=== PATIENT | male | born 1965 | race Caucasian/White ===

== ENCOUNTER → 2017-03-07 | Day surgery (SDC) | payer BC ==
[2017-02-23 11:37] VITALS: Ht 177.8 cm; Wt 86.4 kg
[~2017-03-07] VITALS: Ht 177.8 cm; Wt 86.4 kg
[~2017-03-07] MED LIST: ALBU18002 INH; LIDOCAINE HCL 2% 2 ML VIAL (20MG/ML) ONE; MULT-506 PO; PROPOFOL IV EMULSION 10 MG/ML 20 ML VIAL IV ONE; RABE20TA5 PO; SODIUM CHLORIDE 0.9% 500ML 500 ML IV ONE
[2017-03-07 13:23] VITALS: TEMP 37
--- NOTE | 2017-03-07 13:57 | Endo History and Physical ---
History & Physical Date of Service: Mar 07, 2017. Chief Complaint: House's esophagus Referring Physician: Ga Byrne History of Present Illness 52 yo CM who presents for EGD secondary to House's Esophagus. Past Surgical History Hx Cardiac Surgery: No Hx Internal Defibrillator: No Hx Pacemaker: No Hx Abdominal Surgery: No Hx of Implantable Prosthesis: No Hx Post-Op Nausea and Vomiting: No Hx Cancer Surgery: No Hx Thoracic Surgery: No Hx Orthopedic: Yes (R KNEE SCOPE, L KNEE SCOPE) Hx Urinary Tract Surgery: No Family History Colon CA, Esophogeal CA Social History Smoking Status: Never Smoker Hx Substance Use: No Hx Alcohol Use: Yes (RARELY) Allergies Coded Allergies: No Known Allergies (Unverified , 03/07/17) Current Medications Reported Home Medications Medications Dose Route/Sig Max Daily Dose Days Date Category Proair Respiclick (Albuterol Sulfate) 108 Mcg/Act Aer 1-2 Puffs INH PRN 02/23/17 Reported Multivitamin (Multivitamins) Tab 1 Tab PO QAM 02/23/17 Reported Aciphex (Rabeprazole Sodium) 20 Mg Tab 1 Tab PO QAM 90 02/23/17 Reported Vital Signs Weight (Kilograms): 86.36 Height (Feet): 5 Height (Inches): 10 Date Time Temp Pulse Resp B/P (MAP) Pulse Ox O2 Delivery O2 Flow Rate FiO2 03/07/17 13:23 37.0 61 18 132/85 (101) 97 Room Air Physical Exam General Appearance: WD/WN, no apparent distress Respiratory/Chest: Auscultation: breath sounds normal Cardiovascular: Heart Auscultation: RRR Abdomen: Bowel Sounds: normal Inspection & Palpation: soft, non-distended, no tenderness, guarding & rebound Assessment and Plan Assessment: 52 yo CM who presents for EGD secondary to House's Esophagus. Plan: Proceed with EGD.
--- NOTE | 2017-03-07 14:18 | GI REPORT ---
Procedure Date: 03/07/2017 1:32 PM Procedure: Upper GI endoscopy Indications: Follow-up of House's esophagus Medicines: Monitored Anesthesia Care Complications: No immediate complications. Estimated Blood Loss: Estimated blood loss: none. Procedure: Pre-Anesthesia Assessment: - Prior to the procedure, a History and Physical was performed, and patient medications and allergies were reviewed. The patient's tolerance of previous anesthesia was also reviewed. The risks and benefits of the procedure and the sedation options and risks were discussed with the patient. All questions were answered, and informed consent was obtained. Prior Anticoagulants: The patient has taken no previous anticoagulant or antiplatelet agents. ASA Grade Assessment: II - A patient with mild systemic disease. After reviewing the risks and benefits, the patient was deemed in satisfactory condition to undergo the procedure. After obtaining informed consent, the endoscope was passed under direct vision. Throughout the procedure, the patient's blood pressure, pulse, and oxygen saturations were monitored continuously. The scope was introduced through the mouth, and advanced to the second part of duodenum. The upper GI endoscopy was accomplished without difficulty. The patient tolerated the procedure well. Findings: There were esophageal mucosal changes consistent with short-segment House's esophagus present at the gastroesophageal junction. The maximum longitudinal extent of these mucosal changes was 2 cm in length. Mucosa was biopsied with a cold forceps for histology. One specimen bottle was sent to pathology. The stomach was normal. The examined duodenum was normal. Impression: - Esophageal mucosal changes consistent with short-segment House's esophagus. Biopsied. - Normal stomach. - Normal examined duodenum. Recommendation: - Resume previous diet. - Continue present medications. - Await pathology results. - Return to primary care physician as previously scheduled. Trell Aldridge, 03/07/2017 2:18:32 PM This report has been signed electronically. Note Initiated On: 03/07/2017 1:32 PM I attest to the content of the Intraoperative Record and orders documented therein, exceptions below
--- NOTE | 2017-03-07 14:21 | Discharge Instructions ---
Endoscopy Patient Instructions Date / Procedure(s) Performed Mar 07, 2017. EGD Allergy Information Coded Allergies: No Known Allergies (Unverified , 03/07/17) Discharge Date / Findings Mar 07, 2017. House's Esophagus s/p biopsies Medication Instructions OK to resume all medications today as prescribed Reported Home Medications Medications Dose Route/Sig Max Daily Dose Days Date Category Proair Respiclick (Albuterol Sulfate) 108 Mcg/Act Aer 1-2 Puffs INH PRN 02/23/17 Reported Multivitamin (Multivitamins) Tab 1 Tab PO QAM 02/23/17 Reported Aciphex (Rabeprazole Sodium) 20 Mg Tab 1 Tab PO QAM 90 02/23/17 Reported Provider Instructions Activity Restrictions - No exercising or heavy lifting for 24 hours. - Do not drink alcohol the day of the procedure. - Do not drive a car or operate machinery until the day after the procedure. - Do not make any important decisions or sign important papers in 24 hours after the procedure. Following Day: - Return to full activity which may include returning to work/school. Diet Start your diet with liquids and light foods (jello, soup, juice, toast). Then eat your usual diet if not nauseated. Treatment For Common After Affects For mild abdominal pain, bloating, or excessive gas: - Rest - Eat lightly - Lie on right side Follow-Up Information Follow-up with Ga Byrne as scheduled Anesthesia Information What You Should Know You have had a procedure that required some medicine to reduce anxiety and discomfort. This treatment is called moderate sedation. After receiving the treatment, you may be sleepy, but you will be able to breathe on your own. The effects of the treatment may last for several hours. Follow these instructions along with Activity/Diet recommendations noted above: * Do NOT do anything where dizziness or clumsiness would be dangerous. * Rest quietly at home today, then you can be up and about tomorrow. * Have a responsible person stay with you the rest of today. * You may have had an I.V. today. If so, you may take the dressing off later today. Recommendations Call your doctor if: * Trouble breathing * Continuous vomiting for more than 24 hours * Temperature above 101 degrees * Severe abdominal pain or bloating * Pain not relieved by pain medicine ordered * There is increased drainage or redness from any incision * A large amount of rectal bleeding greater than 2-3 tablespoons. (If you had a polyp/s removed or have hemorrhoids, a small amount of blood - from the rectum is to be expected.) * You have any unanswered questions or concerns. IN THE EVENT OF A SERIOUS EMERGENCY, GO TO THE NEAREST EMERGENCY ROOM Your discharge instructions were prepared by provider Trell Aldridge. Patient Instructions Signature Page Zeeshan Morejon Patient (or Guardian) Signature/Date: I have read and understand the instructions given to me by my caregivers. Caregiver/RN/Doctor Signature/Date: The above-named patient and/or guardian has received patient instructions on this date. + Original Patient Signature Page (only) stays with chart. Please make copy for patient.
[2017-03-07 14:50] VITALS: BP 124/84; PULSE 65; O2SAT 99
--- NOTE | 2017-03-07 15:00 | Anesthesiology Progress Note ---
Anesthesia Post Op Note Date & Time Mar 07, 2017 at 14:59 Vital Signs Pain Intensity: 0 Vital Signs Past 12 Hours Date Time Temp Pulse Resp B/P (MAP) Pulse Ox O2 Delivery O2 Flow Rate FiO2 03/07/17 14:50 65 18 124/84 (97) 99 Room Air 03/07/17 14:33 63 18 119/80 (93) 97 Room Air 03/07/17 14:17 64 18 114/70 (85) 96 Room Air 03/07/17 13:23 37.0 61 18 132/85 (101) 97 Room Air Notes Mental Status: alert / awake / arousable, participated in evaluation Pt Amnestic to Procedure: Yes Nausea / Vomiting: adequately controlled Pain: adequately controlled Airway Patency, RR, SpO2: stable & adequate BP & HR: stable & adequate Hydration State: stable & adequate Anesthetic Complications: no major complications apparent
== END | disposition home or self-care (01) ==
LOC: C.GI 13:02
PROVIDERS: ATTEND Internal Medicine
DX: K22.70 Barrett's esophagus without dysplasia (principal); K21.0 Gastro-esophageal reflux disease with esophagitis; J45.909 Unspecified asthma, uncomplicated; Z80.0 Family history of malignant neoplasm of digestive organs